=== PATIENT | male | born 2005 | race Two or more races ===

== ENCOUNTER 2025-08-17 22:30 | Emergency (ER) | payer OTHER ==
[~2025-08-17] VITALS: Ht 185.4 cm; Wt 72.7 kg
[2025-08-17 22:32] VITALS: BP 139/100; PULSE 96; RESP 16; TEMP 98.7; O2SAT 96
== END 2025-08-17 23:00 | disposition left against medical advice (07) ==
LOC: ER 22:30
DX: S69.91XA Unspecified injury of right wrist, hand and finger(s), initial encounter (principal); X58.XXXA Exposure to other specified factors, initial encounter; Y93.89 Activity, other specified; Y92.89 Other specified places as the place of occurrence of the external cause; Y99.8 Other external cause status